=== PATIENT | female | born 1970 ===

== ENCOUNTER 2018-03-22 17:29 | Emergency (ER) | payer BC ==
[2018-03-22 17:49] VITALS: BP 131/68
--- NOTE | 2018-03-22 18:02 | UC ---
Throat Pain/Nasal Shane HPI - HPI Summary HPI Summary: C/O sore throat, congestion and cough x 2 days. Much worse today. - History of Current Complaint Chief Complaint: UCGeneralIllness Stated Complaint: ST/CONGESTION Time Seen by Provider: 03/22/18 17:54 Hx Obtained From: Patient Hx Last Menstrual Period: 03/16/18 ?: No Onset/Duration: Sudden Onset, Lasting Days - 2, Worse Since - onset Pain Intensity: 8 Cough: Nonproductive Associated Signs & Symptoms: Positive: Dysphagia, Sinus Discomfort, Nasal Discharge - Allergies/Home Medications Allergies/Adverse Reactions: Allergies Allergy/AdvReac Type Severity Reaction Status Date / Time No Known Allergies Allergy Verified 03/22/18 17:49 PMH/Surg Hx/FS Hx/Imm Hx Cardiovascular History: Hypertension - Surgical History Surgical History: Yes Surgery Procedure, Year, and Place: 2 c sections - Family History Known Family History: Positive: Cardiac Disease, Hypertension, Diabetes - Social History Occupation: Employed Full-time Lives: With Family Alcohol Use: Rare Substance Use Type: None Smoking Status (MU): Never Smoked Tobacco Review of Systems Constitutional: Chills ENT: Sore Throat, Ear Ache, Nasal Discharge, Sinus Pain/Tenderness Respiratory: Cough Is Patient Immunocompromised?: No All Other Systems Reviewed And Are Negative: Yes Physical Exam Triage Information Reviewed: Yes Appearance: Well-Appearing, No Pain Distress, Well-Nourished Vital Signs: Initial Vital Signs Temp 99.3 F 03/22/18 17:43 Pulse 65 03/22/18 17:43 Resp 16 03/22/18 17:43 BP 131/68 03/22/18 17:43 Pulse Ox 99 03/22/18 17:43 Vital Signs Reviewed: Yes Eyes: Positive: Conjunctiva Inflamed ENT: Positive: Nasal congestion, TMs normal Neck: Positive: Tenderness @ - bilateral anterior cervical tenderness, Enlarged Nodes @ - bilateral anterior cervical Respiratory: Positive: Lungs clear, Wheezing - expiratory with coughing. Cardiovascular: Positive: RRR, Murmur:Sys:Grade _?_/ - 2/6 Musculoskeletal Exam: Normal Neurological Exam: Normal Psychological Exam: Normal Skin Exam: Normal Throat Pain/Nasal Course/Dx - Differential Dx/Diagnosis Differential Diagnosis/HQI/PQRI: Otitis Media, Pharyngitis, Sinusitis, URI Provider Diagnoses: Acute URI. Acute sinusitis. Acute bronchospasm Discharge - Sign-Out/Discharge Documenting (check all that apply): Discharge/Admit/Transfer - Discharge Plan Condition: Stable Disposition: HOME Prescriptions: Amoxicillin PO (*) [Amoxicillin 875 MG (*)] 875 mg PO BID #20 tab predniSONE [Prednisone 20 MG TAB] 20 mg PO DAILY #18 tablet Patient Education Materials: Upper Respiratory Infection (DC), Sinusitis (ED), Amoxicillin (By mouth), Bronchospasm (ED), Prednisone (By mouth) Referrals: Non Staff,Doctor [Primary Care Provider] - Additional Instructions: NASAL SPRAYS AND DROPS: Afrin in the PUMP/ MIST bottle (Get generic 12 hours nasal decongestant spray). Tilt your head down and look at the floor while doing a strong sniff with the spray. Decongestant nasal sprays and drops often give dramatic relief from congestion. They are often recommended for patients with sinus infection to assist with sinus drainage. Persons with high blood pressure should consult the doctor before using these nasal sprays. Afrin and Mak-Synephrine are common vibn-arj-oaonhmr preparations. They should not be used for more than five days, as "rebound" congestion can occur - - the congestion flares as the drug wears off. A way of dealing with this rebound congestion problem is to medicate only one nostril each time, allowing the other nostril to recover from the medicine' s effects. When you no longer need the drug during the day, spray only one nostril each night. This helps you sleep well without severe rebound congestion. Call the doctor if you develop severe headache, palpitations, or chest pain. - Billing Disposition and Condition Condition: STABLE Disposition: Home
== END 2018-03-22 18:32 | disposition home or self-care (01) ==
LOC: EDBD → UCCORT 17:29
DX: J06.9 Acute upper respiratory infection, unspecified (principal); J01.90 Acute sinusitis, unspecified; J98.01 Acute bronchospasm
CPT/HCPCS: 87651; 99202; G0463